=== PATIENT | female | born 1975 | race Caucasian/White ===

== ENCOUNTER 2017-04-08 16:23 | Emergency (ER) | payer OTHER ==
--- NOTE | 2017-04-08 19:31 | EDPHY ---
H & P Time Seen by Provider: 04/08/17 19:37 HPI/ROS: CHIEF COMPLAINT: Abdominal pain HISTORY OF PRESENT ILLNESS: This patient is a 41 year old female who presents to the Emergency Department complaining of waxing and waning abdominal pain beginning two nights prior to arrival. She reports that she has a history of intermittent abdominal pain that usually subsides on its own but presents today because her pain is more severe and has been persistent. A few years ago she had an upper endoscopy performed for similar pain and was diagnosed with a small hiatal hernia. She took an acid blocking medication for a while, can't recall which one. She has taken Tums, Zantac, and simethicone without improvement to her pain. She reports mild constipation with last BM three days prior to arrival. She denies nausea or vomiting, fever or chills, vaginal discharge, pelvic pain, or urinary complaints. She denies history of abdominal surgeries. REVIEW OF SYSTEMS: A ten point review of systems was performed and is negative with the exception of the items mentioned in the HPI. Source: Patient Exam Limitations: No limitations - Medical/Surgical History PMH: Prior episode of abdominal pain multiple years ago; endoscopy done at that time showed hiatal hernia but no other significant findings. Hx Splenectomy or Spleen Trauma: No - Social History Smoking Status: Never smoked Alcohol Use: None Drug Use: None Additional Social History: and daughter at bedside. Non-smoker. 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 - Physical Exam Exam: General Appearance: Alert. Vital signs reviewed. Eyes: Pupils equal and round, no conjunctival injection, no discharge. Anicteric. ENT, Mouth: Mucous membranes are moist, no oropharyngeal erythema or edema. Neck: No lymphadenopathy, supple. Respiratory: Lungs are clear to auscultation; no wheezes, rales, or rhonchi. Cardiovascular: Regular rate and rhythm; no murmur, rub, or gallop. Gastrointestinal: Abdomen is soft, epigastric tenderness, no masses or organomegaly, bowel sounds normal. Skin: Warm and dry, no rashes on exposed skin, normal color. Back: Nontender to palpation over the thoracolumbar spine. No CVAT. Extremities: No lower extremity edema, no calf tenderness or swelling. Neurological: Alert and oriented. Moving all four extremities easily and equally. Psychiatric: Normal affect. Constitutional: Initial Vital Signs Temperature (C) 36.7 C 05/24/17 22:01 Heart Rate 70 04/08/17 22:01 Respiratory Rate 20 04/08/17 22:01 Blood Pressure 117/72 04/08/17 22:01 O2 Sat (%) 98 04/08/17 22:01 O2 Delivery Mode Room Air Allergies/Adverse Reactions: wheat Allergy (Verified 12/11/15 04:51) Home Medications: Medication Instructions Recorded Flonase 06/19/13 Nortriptyline 06/19/13 Singulair 06/19/13 Hydrocodone/APAP 5/325 [[place] 1 - 2 tab PO Q4 PRN #30 tab 12/13/15 5/325 (*)] Medical Decision Making ED Course/Re-evaluation: This 41 year old female complains of waxing and waning epigastric pain remaining unimproved with use of simethicone and Zantac at home. She has a history of one prior episode of similar pain with no acute findings following upper endoscopy conducted at that time. On exam, she has mid-epigastric tenderness. No other significant findings. The patient is currently and declines medication for pain. Will proceed with labs. IV established. 20mg IV Famotidine administered. Urinalysis is contaminated with epithelial cells. She is not experiencing urinary tract symptoms and I do not think that she has urinary tract infection or pyelonephritis. CBC, chemistries, lipase, and liver functions are all within normal limits. This is not appear to be cholecystitis or pancreatitis. She did start to feel slightly better while in the emergency department. I have not found a clear-cut etiology for her pain. I suspect that this is gastritis/peptic ulcer disease. I am recommending that she continue with the Zantac as per instructions on the packaging. She will use Tylenol as needed for pain. I have advised her to follow up with her primary care physician this week. She will return if she is worse in any way. Differential Diagnosis: Abdominal pain including but not limited to appendicitis, cholecystitis, gastritis and urinary tract infection. - Data Points Laboratory Results: Laboratory Results 04/08/17 20:00 04/08/17 20:00 04/08/17 04/08/17 04/08/17 20:00 20:00 20:00 WBC 10.19 10^3/uL H 10^3/uL (3.80-9.50) RBC 4.59 10^6/uL 10^6/uL (4.18-5.33) Hgb 14.1 g/dL g/dL (12.6-16.3) Hct 42.8 % % (38.0-47.0) MCV 93.2 fL fL (81.5-99.8) MCH 30.7 pg pg (27.9-34.1) MCHC 32.9 g/dL g/dL (32.4-36.7) RDW 13.4 % % (11.5-15.2) Plt Count 291 10^3/uL 10^3/uL (150-400) MPV 9.4 fL fL (8.7-11.7) Neut % (Auto) 73.6 % % (39.3-74.2) Lymph % (Auto) 16.6 % % (15.0-45.0) Morton % (Auto) 7.5 % % (4.5-13.0) Eos % (Auto) 1.2 % % (0.6-7.6) Baso % (Auto) 0.7 % % (0.3-1.7) Nucleat RBC Rel Count 0.0 % % (0.0-0.2) Absolute Neuts (auto) 7.51 10^3/uL H 10^3/uL (1.70-6.50) Absolute Lymphs (auto) 1.69 10^3/uL 10^3/uL (1.00-3.00) Absolute Monos (auto) 0.76 10^3/uL 10^3/uL (0.30-0.80) Absolute Eos (auto) 0.12 10^3/uL 10^3/uL (0.03-0.40) Absolute Basos (auto) 0.07 10^3/uL 10^3/uL (0.02-0.10) Absolute Nucleated RBC 0.00 10^3/uL 10^3/uL (0-0.01) Immature Gran % 0.4 % % (0.0-1.1) Immature Gran # 0.04 10^3/uL 10^3/uL (0.00-0.10) Sodium 139 mEq/L mEq/L (134-144) Potassium 4.0 mEq/L mEq/L (3.5-5.2) Chloride 104 mEq/L mEq/L (97-110) Carbon Dioxide 24 mEq/l mEq/l (22-31) Anion Gap 11 mEq/L mEq/L (8-16) BUN 16 mg/dL mg/dL (7-23) Creatinine 0.7 mg/dL mg/dL (0.6-1.0) Estimated GFR > 60 Glucose 84 mg/dL mg/dL (70-100) Calcium 9.6 mg/dL mg/dL (8.5-10.4) Total Bilirubin 0.7 mg/dL mg/dL (0.1-1.4) Conjugated Bilirubin 0.3 mg/dL mg/dL (0.0-0.5) Unconjugated Bilirubin 0.4 mg/dL mg/dL (0.0-1.1) AST 21 IU/L IU/L (14-46) ALT 29 IU/L IU/L (9-52) Alkaline Phosphatase 90 IU/L IU/L (38-126) Total Protein 8.2 g/dL g/dL (6.3-8.2) Albumin 4.6 g/dL g/dL (3.5-5.0) Lipase 77.0 IU/L IU/L (23-300) Beta HCG, Qual NEGATIVE Urine Color Urine Appearance Urine pH Ur Specific [place] Urine Protein Urine Ketones Urine Blood Urine Nitrate Urine Bilirubin Urine Urobilinogen Ur Leukocyte Esterase Urine RBC Urine WBC Ur Epithelial Cells Urine Mucus Urine Glucose Urine Test H. pylori IgG Antibody NEGATIVE (NEG) 04/08/17 04/08/17 20:00 20:00 WBC RBC Hgb Hct MCV MCH MCHC RDW Plt Count MPV Neut % (Auto) Lymph % (Auto) Morton % (Auto) Eos % (Auto) Baso % (Auto) Nucleat RBC Rel Count Absolute Neuts (auto) Absolute Lymphs (auto) Absolute Monos (auto) Absolute Eos (auto) Absolute Basos (auto) Absolute Nucleated RBC Immature Gran % Immature Gran # Sodium Potassium Chloride Carbon Dioxide Anion Gap BUN Creatinine Estimated GFR Glucose Calcium Total Bilirubin Conjugated Bilirubin Unconjugated Bilirubin AST ALT Alkaline Phosphatase Total Protein Albumin Lipase Beta HCG, Qual Urine Color YELLOW Urine Appearance MODERATELY TURBID Urine pH 5.0 (5.0-7.5) Ur Specific [place] 1.027 (1.002-1.030) Urine Protein NEGATIVE (NEGATIVE) Urine Ketones 1+ H (NEGATIVE) Urine Blood NEGATIVE (NEGATIVE) Urine Nitrate NEGATIVE (NEGATIVE) Urine Bilirubin NEGATIVE (NEGATIVE) Urine Urobilinogen NEGATIVE EU EU (0.2-1.0) Ur Leukocyte Esterase 1+ H (NEGATIVE) Urine RBC 3-5 /hpf H /hpf (0-3) Urine WBC 25-50 /hpf H /hpf (0-3) Ur Epithelial Cells 3+ /lpf H /lpf (NONE-1+) Urine Mucus 4+ /lpf H /lpf (NONE-1+) Urine Glucose NEGATIVE (NEGATIVE) Urine Test NEGATIVE H. pylori IgG Antibody Medications Given: Discontinued Medications Famotidine/Sodium Chloride (Pepcid 20 Mg (Premix)) 50 mls @ 200 mls/hr IV EDNOW ONE Stop: 04/08/17 19:59 Last Admin: 04/08/17 20:04 Dose: 50 mls Departure - Departure Disposition: Home, Routine, Self-Care Clinical Impression: Epigastric abdominal pain Gastritis Qualifiers: Gastritis type: unspecified gastritis Chronicity: acute Gastritis bleeding: without bleeding Qualified Code(s): K29.00 - Acute gastritis without bleeding Condition: Good Instructions: Gastritis (ED), Acute Abdominal Pain (ED) Additional Instructions: 1. Take Zantac as directed on the packaging. Is fine for you to take Tylenol for pain if needed. I recommend 650 mg every 4 hours. I am giving you information about gastritis. As we discussed, it is not clear what is causing your abdominal pain. 2. If you continue to experience abdominal pain unimproved over the next 2-3 days, please follow-up with your primary care provider for reevaluation. 3. Return to the Emergency Department with worsening abdominal pain, back pain, fever or chills, vomiting or diarrhea, blood in vomit or stool, or for other serious concerns. Referrals: Lara Andrea MD [Primary Care Provider] - As per Instructions Report Scribed for: Yajaira Carrera Report Scribed by: Camilla Rangel Date of Report: 04/08/17 Time of Report: 19:33 Physician Review and Approval Statement: 04/08/17 19:31 Portions of this note were transcribed by the medical transcriptionist. I, Dr. Yajaira Carrera, personally performed the history, physical exam, and medical decision- making; and confirmed the accuracy of the information in the transcribed note.
[2017-04-08] MEDS ORDERED: FAMOTIDINE 20 MG/NACL 50 ML IV ONE (19:45)
[2017-04-08 20:08] LABS: % IMMATURE GRANULYOCYTES 0.4 % (0.0-1.1); ABSOLUTE IMMATURE GRANULOCYTES 0.04 10^3/uL (0.00-0.10); ADD DIFF? NO; ADD MORPH? NO; ADD SCAN? NO; ATYPICAL LYMPHOCYTE FLAG 10 (0-99); FRAGMENT RBC FLAG 0 (0-99); HEMATOCRIT 42.8 % (38.0-47.0); HEMOGLOBIN 14.1 g/dL (12.6-16.3); LEFT SHIFT FLG 0 (0-99); LIPEMIA HEMOLYSIS FLAG 80 (0-99); MEAN CELL HEMOGLOBIN 30.7 pg (27.9-34.1); MEAN CELL HEMOGLOBIN CONCENTR. 32.9 g/dL (32.4-36.7); MEAN CELL VOLUME 93.2 fL (81.5-99.8); MEAN PLATELET VOLUME 9.4 fL (8.7-11.7); PLATELET CLUMPS FLAG 0 (0-99); PLATELET COUNT 291 10^3/uL (150-400); RED BLOOD CELL COUNT 4.59 10^6/uL (4.18-5.33); RED CELL DISTRIBUTION WIDTH 13.4 % (11.5-15.2)
[2017-04-08 20:13] LABS: COLOR YELLOW; LEUKOCYTE ESTERASE,URINE 1+ (NEGATIVE); NITRITE,URINE NEGATIVE (NEGATIVE)
[2017-04-08 20:17] LABS: BHCG-QUALITATIVE NEGATIVE
[2017-04-08 20:18] LABS: MUCUS 4+ /lpf (NONE-1+); WBC,URINE 25-50 /hpf (0-3)
[2017-04-08 20:30] LABS: ALANINE AMINOTRANSFERASE 29 IU/L (9-52); ALBUMIN 4.6 g/dL (3.5-5.0); ALKALINE PHOSPHATASE 90 IU/L (38-126); ANION GAP 11 mEq/L (8-16); ASPARTATE AMINOTRANSFERASE 21 IU/L (14-46); BILIRUBIN,TOTAL 0.7 mg/dL (0.1-1.4); BILIRUBIN-CONJUGATED 0.3 mg/dL (0.0-0.5); BILIRUBIN-UNCONJUGATED 0.4 mg/dL (0.0-1.1); CALCIUM 9.6 mg/dL (8.5-10.4); CARBON DIOXIDE 24 mEq/l (22-31); CHLORIDE 104 mEq/L (97-110); CREATININE 0.7 mg/dL (0.6-1.0); GLOMERULAR FILTRATION RATE > 60; GLUCOSE 84 mg/dL (70-100); SODIUM 139 mEq/L (134-144); TOTAL PROTEIN 8.2 g/dL (6.3-8.2)
[2017-04-08 22:02] VITALS: BP 117/72; PULSE 70; RESP 20; TEMP 98.1; O2SAT 98
== END 2017-04-08 22:00 | disposition home or self-care (01) ==
DX: K29.00 Acute gastritis without bleeding (principal)
CPT/HCPCS: 96374